=== PATIENT | male | born 1975 | race Caucasian/White ===

== ENCOUNTER 2021-03-30 04:44 | Emergency (ER) | payer OTHER ==
[2021-03-30 06:05] LABS: #Basophils 0.1 10x3/uL (0.0-0.2); #Eosinphils 0.4 10x3/uL (0.0-0.5); #Monocytes 0.9 10x3/uL (0.0-1.1); %Eosinophils 6.2 % (0.0-6.0); %Lymphocytes 7.1 % (18.0-47.0); %Monocytes 12.6 % (0.0-10.0); %Neutrophils 72.7 % (40.0-75.0); Hemoglobin 9.9 g/dL (13.5-17.5); Mean Corpuscular Hemoglobin 24.6 pg (27.0-33.0); Mean Corpuscular Volume 79.2 fl (81.2-95.1); Platelet Count 264 10x3/uL (150-450); RBC Distribution Width 16.7 % (11.5-14.5); Red Blood Cell (RBC) Count 4.03 10x6/uL (4.32-5.72); White Blood Cell (WBC) Count 6.9 10x3/uL (3.5-10.5)
[2021-03-30] MEDS ORDERED: Albumin 25% 25 GM/100 ML BOT IVPB SCH (06:15)
[2021-03-30 06:16] LABS: INR-International Normal Ratio 1.1; Prothrombin Time 11.6 sec (9.5-12.1)
[2021-03-30 06:18] LABS: ALT (SGPT) 11 U/L (8-55); AST (SGOT) 23 U/L (5-34); Albumin 2.2 g/dL (3.5-5.0); Alkaline Phosphatase 89 U/L (40-110); Anion Gap 11 mmol/L (10-20); BUN (Urea Nitrogen) 12 mg/dL (8.9-20.6); Bilirubin, Total 0.5 mg/dL (0.2-1.2); Calc. Creatinine Clearance 0 mL/min (70-130); Calcium 7.4 mg/dL (7.8-10.44); Carbon Dioxide 21 mmol/L (22-29); Chloride 108 mmol/L (98-107); Globulin 2.7 g/dL (2.4-3.5); Glucose 118 mg/dL (70-105); Protein, Total 4.9 g/dL (6.0-8.3); Sodium 136 mmol/L (136-145)
== END 2021-03-30 08:30 | disposition home or self-care (01) ==
LOC: CSHERS 04:44
DX: K76.7 Hepatorenal syndrome (principal); R18.8 Other ascites; E66.9 Obesity, unspecified; Z79.899 Other long term (current) drug therapy
CPT/HCPCS: 36415; 80053; 85025; 85610; 96365; 96366; P9047

== ENCOUNTER 2021-07-13 14:15 | Emergency (ER) | payer OTHER ==
[2021-07-13 15:04] LABS: #Basophils 0.1 10x3/uL (0.0-0.2); #Eosinphils 0.2 10x3/uL (0.0-0.5); #Monocytes 0.7 10x3/uL (0.0-1.1); #Neutrophils 2.4 10x3/uL (1.5-8.4); %Basophils 1.3 % (0.0-2.0); %Lymphocytes 12.1 % (18.0-47.0); %Monocytes 17.8 % (0.0-10.0); %Neutrophils 62.5 % (40.0-75.0); Hemoglobin 8.8 g/dL (13.5-17.5); Mean Corpuscular HGB CONC 31.5 g/dL (32.0-36.0); Mean Corpuscular Hemoglobin 24.3 pg (27.0-33.0); Mean Corpuscular Volume 77.1 fl (81.2-95.1); Mean Platelet Volume 8.7 fl (7.4-10.4); Platelet Count 251 10x3/uL (150-450); RBC Distribution Width 17.6 % (11.5-14.5); Red Blood Cell (RBC) Count 3.62 10x6/uL (4.32-5.72); White Blood Cell (WBC) Count 3.8 10x3/uL (3.5-10.5)
[2021-07-13 15:06] LABS: ALT (SGPT) 11 U/L (8-55); AST (SGOT) 28 U/L (5-34); Albumin 2.6 g/dL (3.5-5.0); Alkaline Phosphatase 76 U/L (40-110); Anion Gap 12 mmol/L (10-20); BUN (Urea Nitrogen) 13 mg/dL (8.9-20.6); Bilirubin, Total 0.3 mg/dL (0.2-1.2); Calc. Creatinine Clearance 0 mL/min (70-130); Calcium 8.1 mg/dL (7.8-10.44); Carbon Dioxide 20 mmol/L (22-29); Chloride 108 mmol/L (98-107); Globulin 2.5 g/dL (2.4-3.5); Glucose 133 mg/dL (70-105); Potassium 4.1 mmol/L (3.5-5.1); Protein, Total 5.1 g/dL (6.0-8.3); Sodium 136 mmol/L (136-145)
[2021-07-13] MEDS ORDERED: Lidocaine 1% PF 5 ML VIAL ONE ×2 (15:17→15:21)
[2021-07-13] MEDS ORDERED: Albumin 25% 200 ML ONE (15:42)
[2021-07-13 17:01] LABS: Anisocytosis SLIGHT = 6-15 cells (100X) (0-5/hpf)
[2021-07-13 17:02] LABS: Hypochromia SLIGHT = 6-15 cells (100X) (0-5/hpf); Platelet Morphology Comment Appears Adequate; Polychromasia SLIGHT = 2-3 cells (100X) (0-2/hpf)
[2021-07-13 18:38] LABS: Body Fluid Source Paracentesis Fluid
[2021-07-13 18:39] LABS: BF Color Yellow; Clarity Clear (Clear); Tube # EDTA
[2021-07-13 19:05] LABS: BF Segmented Neutrophils 6 %; Cell Count Non Hematic 38 %; Lymphocytes 56 %
== END 2021-07-13 18:57 | disposition home or self-care (01) ==
LOC: CSHERS 14:15
DX: K72.90 Hepatic failure, unspecified without coma (principal); R18.8 Other ascites
CPT/HCPCS: 49083; 80053; 82140; 85025; 87070; 87205; 89051; 96374; P9047

== ENCOUNTER 2021-07-16 13:13 | Emergency (ER) | payer OTHER ==
[2021-07-16 14:42] LABS: #Basophils 0.1 10x3/uL (0.0-0.2); #Eosinphils 0.2 10x3/uL (0.0-0.5); #Monocytes 0.6 10x3/uL (0.0-1.1); #Neutrophils 4.1 10x3/uL (1.5-8.4); %Basophils 1.1 % (0.0-2.0); %Lymphocytes 8.3 % (18.0-47.0); %Monocytes 11.3 % (0.0-10.0); %Neutrophils 74.9 % (40.0-75.0); Hemoglobin 9.6 g/dL (13.5-17.5); Mean Corpuscular HGB CONC 32.2 g/dL (32.0-36.0); Mean Corpuscular Hemoglobin 24.2 pg (27.0-33.0); Mean Corpuscular Volume 75.3 fl (81.2-95.1); Mean Platelet Volume 8.7 fl (7.4-10.4); Platelet Count 256 10x3/uL (150-450); RBC Distribution Width 17.7 % (11.5-14.5); Red Blood Cell (RBC) Count 3.96 10x6/uL (4.32-5.72); White Blood Cell (WBC) Count 5.5 10x3/uL (3.5-10.5)
[2021-07-16 14:57] LABS: ALT (SGPT) 18 U/L (8-55); AST (SGOT) 29 U/L (5-34); Albumin 2.6 g/dL (3.5-5.0); Alkaline Phosphatase 73 U/L (40-110); Anion Gap 12 mmol/L (10-20); BUN (Urea Nitrogen) 12 mg/dL (8.9-20.6); Bilirubin, Total 0.3 mg/dL (0.2-1.2); CK (CPK) 76 U/L (30-200); Calc. Creatinine Clearance 0 mL/min (70-130); Calcium 7.7 mg/dL (7.8-10.44); Carbon Dioxide 19 mmol/L (22-29); Chloride 111 mmol/L (98-107); Glucose 103 mg/dL (70-105); Lipase 44 U/L (8-78); Protein, Total 4.6 g/dL (6.0-8.3); Sodium 138 mmol/L (136-145)
[2021-07-16 15:03] LABS: PTT 24.5 sec (22.0-33.0)
== END 2021-07-16 15:06 | disposition left against medical advice (07) ==
LOC: CSHERS 13:13
DX: R18.8 Other ascites (principal)
CPT/HCPCS: 36415; 80053; 82550; 83605; 83690; 85025; 85610; 85730; 99284

== ENCOUNTER 2021-09-18 22:56 | Inpatient (IN) | payer OTHER ==
[2021-09-18] MEDS ORDERED: Lidocaine 1% (PF) 30 ML VIAL ONE (23:24)
[2021-09-18] MEDS ORDERED: Piperacillin/Tazobactam 4.5 GM VIAL ONE (23:29)
[2021-09-18 23:41] LABS: #Basophils 0.1 10x3/uL (0.0-0.2); #Eosinphils 0.2 10x3/uL (0.0-0.5); #Monocytes 1.1 10x3/uL (0.0-1.1); #Neutrophils 6.5 10x3/uL (1.5-8.4); %Basophils 1.1 % (0.0-2.0); %Eosinophils 1.9 % (0.0-6.0); %Monocytes 12.8 % (0.0-10.0); %Neutrophils 77.8 % (40.0-75.0); Hemoglobin 9.8 g/dL (13.5-17.5); Mean Corpuscular HGB CONC 31.8 g/dL (32.0-36.0); Mean Corpuscular Hemoglobin 26.6 pg (27.0-33.0); Mean Corpuscular Volume 83.7 fl (81.2-95.1); Mean Platelet Volume 8.8 fl (7.4-10.4); Platelet Count 243 10x3/uL (150-450); RBC Distribution Width 19.2 % (11.5-14.5); Red Blood Cell (RBC) Count 3.68 10x6/uL (4.32-5.72); White Blood Cell (WBC) Count 8.4 10x3/uL (3.5-10.5)
[2021-09-18 23:49] LABS: ALT (SGPT) 23 U/L (8-55); AST (SGOT) 43 U/L (5-34); Albumin 2.7 g/dL (3.5-5.0); Alkaline Phosphatase 90 U/L (40-110); Anion Gap 12 mmol/L (10-20); BUN (Urea Nitrogen) 12 mg/dL (8.9-20.6); Bilirubin, Total 0.3 mg/dL (0.2-1.2); Calc. Creatinine Clearance 0 mL/min (70-130); Calcium 8.2 mg/dL (7.8-10.44); Carbon Dioxide 21 mmol/L (22-29); Chloride 112 mmol/L (98-107); Estimated GFR 69; Globulin 2.5 g/dL (2.4-3.5); Glucose 108 mg/dL (70-105); Protein, Total 5.2 g/dL (6.0-8.3); Sodium 141 mmol/L (136-145)
[2021-09-19 00:31] LABS: SARS-CoV-2 NAA Rapid Test Not Detected (NotDetected)
[2021-09-19] MEDS ORDERED: Furosemide 40 MG/4 ML VIAL ONE (00:44)
[2021-09-19] MEDS ORDERED: Lorazepam 2 MG/ML VIAL ONE (02:41)
[2021-09-19] MEDS ORDERED: Communication Order-Pharmacy FS PRN (03:24)
[2021-09-19] MEDS ORDERED: Lorazepam 2 MG/ML VIAL SLOW IVP PRN (03:34)
[2021-09-19] MEDS ORDERED: Ondansetron PF 4 MG/2 ML Vial IVP PRN (03:40)
[2021-09-19 03:48] VITALS: BMI 57.2
[2021-09-19] MEDS ORDERED: Pharmacy to Dose ABX/VANCOMYCIN IVPB PRN (04:22)
[2021-09-19] MEDS ORDERED: Vancomycin HCl 1 GM in Sodium Chloride 0.9% 250 ML 250 ML IVPB SCH (05:00)
[2021-09-19] MEDS ORDERED: Thiamine HCl 200 MG/2 ML VIAL SLOW IVP SCH (05:00)
[2021-09-19] MEDS ORDERED: Lorazepam 1 MG TAB PO SCH (05:00)
[2021-09-19] MEDS: Piperacillin/Tazobactam 3.375 GM in Sodium Chloride 0.9% 100 ML IVPB SCH ×2 (05:07→13:08)
[2021-09-19] MEDS ORDERED: Piperacillin/Tazobactam 4.5 GM in Sodium Chloride 0.9% 100 ML IVPB SCH (06:00)
[2021-09-19] MEDS ORDERED: Bumetanide 1 MG TAB PO SCH (07:30)
[2021-09-19 07:41] LABS: Anion Gap 12 mmol/L (10-20); BUN (Urea Nitrogen) 13 mg/dL (8.9-20.6); Calc. Creatinine Clearance 191 mL/min (70-130); Calcium 7.9 mg/dL (7.8-10.44); Carbon Dioxide 23 mmol/L (22-29); Chloride 110 mmol/L (98-107); Estimated GFR 77; Glucose 103 mg/dL (70-105); Magnesium 1.5 mg/dL (1.6-2.6); Potassium 3.6 mmol/L (3.5-5.1); Sodium 141 mmol/L (136-145)
[2021-09-19] MEDS ORDERED: Spironolactone 25 MG TAB PO SCH (08:00)
[2021-09-19] MEDS ORDERED: Folic Acid 1 MG TAB PO SCH (09:00)
[2021-09-19] MEDS ORDERED: Enoxaparin Sodium 40 MG/0.4 ML SYRINGE SC SCH (09:00)
[2021-09-19] MEDS ORDERED: Rifaximin 550 MG TAB PO SCH (09:00)
[2021-09-19] MEDS ORDERED: Pantoprazole 40 MG VIAL IVP SCH (09:00)
[2021-09-19] MEDS ORDERED: Multivitamin W/ Minerals 1 TAB PO SCH (09:00)
[2021-09-19] MEDS ORDERED: HYDROcodone/Acetaminophen 5/325 mg Tablet PO PRN (11:40)
[2021-09-19] MEDS ORDERED: Morphine 4 MG/ML VIAL SLOW IVP PRN (11:40)
[2021-09-19] MEDS ORDERED: HYDROcodone/Acetaminophen 5/325 mg Tablet PO SCH (11:45)
[2021-09-19 12:04] VITALS: BP 118/58; TEMP 97.5
[2021-09-19] MEDS: Magnesium 2 GM/50 ML(in water) 2 GM in Premix Bag 1 BAG IVPB SCH ×2 (12:16→12:20)
[2021-09-19] MEDS ORDERED: Sodium Bicarbonate 2.5 MEQ/5 ML VIAL ONE (12:28)
[2021-09-19] MEDS ORDERED: Albumin 25% 100 ML ONE (12:28)
[2021-09-19] MEDS ORDERED: Albumin 25% 0 ML ONE (12:28)
[2021-09-19] MEDS ORDERED: Lidocaine 1% PF 5 ML VIAL ONE (12:28)
[2021-09-19] MEDS ORDERED: Piperacillin/Tazobactam 3.375 GM VIAL ONE (13:10)
[2021-09-19] MEDS ORDERED: Bumetanide 1 MG/4 ML VIAL IVP SCH (14:00)
[2021-09-19 14:32] LABS: BF Color Yellow; Body Fluid Source Ascites Body Fluid; Clarity Hazy (Clear); Tube # EDTA
[2021-09-19 15:52] LABS: Cell Count Non Hematic 26 %
[2021-09-19 15:54] LABS: BF Segmented Neutrophils 21 %; Lymphocytes 53 %
[2021-09-19] MEDS ORDERED: VANCOMYCIN IVPB SCH (17:00)
[2021-09-19] MEDS ORDERED: rOPINIRole HCl 1 MG TAB PO SCH (21:00)
[2021-09-20] MEDS ORDERED: Spironolactone 25 MG TAB PO SCH (08:00)
== END 2021-09-19 17:01 | disposition left against medical advice (07) | DRG 432 ==
LOC: CSHERS 22:56 → CSHTELE 09-19 03:42
PROVIDERS: ADMIT Family Medicine; ATTEND Family Medicine
PROC: 0W9G3ZZ Drainage of Peritoneal Cavity, Percutaneous Approach (ICD-10-PCS; principal; 2021-09-19)
DX: K70.31 Alcoholic cirrhosis of liver with ascites (principal); K65.2 Spontaneous bacterial peritonitis; Z20.822 Contact with and (suspected) exposure to COVID-19; F10.20 Alcohol dependence, uncomplicated; J98.4 Other disorders of lung; E66.01 Morbid (severe) obesity due to excess calories; E03.9 Hypothyroidism, unspecified; B19.20 Unspecified viral hepatitis C without hepatic coma; Z76.82 Awaiting organ transplant status; Z90.49 Acquired absence of other specified parts of digestive tract
CPT/HCPCS: 36415; 49083; 71045; 76705; 80048; 80053; 82042; 82140; 82945; 83605; 83735; 83880; 84443; 84484; 85025; 87040; 87070; 87205; 89051; 93005; C9113; J1650; J1940; J2001; J2060; J2543; J3370; J3411; J3475; J3490; J7050; P9047; U0002

== ENCOUNTER 2021-11-14 11:06 | Emergency (ER) | payer OTHER ==
[2021-11-14 11:39] LABS: Hemoglobin 10.9 g/dL (13.5-17.5); Mean Corpuscular HGB CONC 32.2 g/dL (32.0-36.0); Mean Corpuscular Hemoglobin 26.1 pg (27.0-33.0); Mean Corpuscular Volume 81.1 fl (81.2-95.1); Platelet Count 267 10x3/uL (150-450); RBC Distribution Width 15.9 % (11.5-14.5); Red Blood Cell (RBC) Count 4.17 10x6/uL (4.32-5.72); White Blood Cell (WBC) Count 5.4 10x3/uL (3.5-10.5)
[2021-11-14 11:47] LABS: PTT 22.9 sec (22.0-33.0); Prothrombin Time 10.9 sec (9.5-12.1)
[2021-11-14 11:49] LABS: ALT (SGPT) 21 U/L (8-55); AST (SGOT) 40 U/L (5-34); Alkaline Phosphatase 78 U/L (40-110); Anion Gap 11 mmol/L (10-20); BUN (Urea Nitrogen) 16 mg/dL (8.9-20.6); Bilirubin, Total 0.3 mg/dL (0.2-1.2); Calc. Creatinine Clearance 0 mL/min (70-130); Calcium 8.8 mg/dL (7.8-10.44); Carbon Dioxide 23 mmol/L (22-29); Chloride 108 mmol/L (98-107); Estimated GFR 73; Globulin 2.7 g/dL (2.4-3.5); Glucose 94 mg/dL (70-105); Lipase 50 U/L (8-78); Potassium 5.2 mmol/L (3.5-5.1); Protein, Total 5.7 g/dL (6.0-8.3); Sodium 137 mmol/L (136-145)
[2021-11-14 12:12] LABS: Eosinophils 5 % (0-10); Lymphocytes 6 % (21-51); Monocytes 11 % (0-10); Reactive Lymphocytes 2 % (0-10)
[2021-11-14 12:13] LABS: MDiff Complete? YES; Neutrophil 74 % (42-75)
[2021-11-14 12:16] LABS: Large Platelets SLIGHT; Microcytosis SLIGHT = 6-15 cells (100X) (0-5/hpf)
[2021-11-14 12:17] LABS: Platelet Morphology Comment Appears Adequate
[2021-11-14] MEDS ORDERED: Morphine 4 MG/ML VIAL ONE (13:53)
== END 2021-11-14 14:05 | disposition home or self-care (01) ==
LOC: CSHERS 11:06
DX: R10.11 Right upper quadrant pain (principal); R18.8 Other ascites
CPT/HCPCS: 36415; 71045; 80053; 83690; 85025; 85610; 85730; 96374; J2270

== ENCOUNTER 2021-12-16 15:34 | Observation (INO) | payer OTHER ==
[2021-12-16 16:07] LABS: #Basophils 0.1 10x3/uL (0.0-0.2); #Eosinphils 0.3 10x3/uL (0.0-0.5); #Monocytes 0.9 10x3/uL (0.0-1.1); #Neutrophils 3.6 10x3/uL (1.5-8.4); %Basophils 1.1 % (0.0-2.0); %Eosinophils 4.9 % (0.0-6.0); %Lymphocytes 11.3 % (18.0-47.0); %Monocytes 16.9 % (0.0-10.0); %Neutrophils 65.3 % (40.0-75.0); Hemoglobin 11.7 g/dL (13.5-17.5); Mean Corpuscular HGB CONC 33.1 g/dL (32.0-36.0); Mean Corpuscular Volume 78.4 fl (81.2-95.1); Mean Platelet Volume 9.2 fl (7.4-10.4); Platelet Count 293 10x3/uL (150-450); RBC Distribution Width 16.5 % (11.5-14.5); White Blood Cell (WBC) Count 5.5 10x3/uL (3.5-10.5)
[2021-12-16 16:26] LABS: ALT (SGPT) 39 U/L (8-55); AST (SGOT) 58 U/L (5-34); Albumin 3.3 g/dL (3.5-5.0); Alkaline Phosphatase 109 U/L (40-110); Anion Gap 14 mmol/L (10-20); BUN (Urea Nitrogen) 16 mg/dL (8.9-20.6); Bilirubin, Total 0.5 mg/dL (0.2-1.2); Calc. Creatinine Clearance 0 mL/min (70-130); Calcium 8.7 mg/dL (7.8-10.44); Carbon Dioxide 23 mmol/L (22-29); Chloride 105 mmol/L (98-107); Estimated GFR 59; Globulin 2.9 g/dL (2.4-3.5); Glucose 119 mg/dL (70-105); Potassium 4.1 mmol/L (3.5-5.1); Protein, Total 6.2 g/dL (6.0-8.3); Sodium 138 mmol/L (136-145)
[2021-12-16 16:43] LABS: Band 1 % (5-11); Eosinophils 6 % (0-10); Lymphocytes 10 % (21-51); Monocytes 12 % (0-10); Reactive Lymphocytes 5 % (0-10)
[2021-12-16 16:44] LABS: Neutrophil 65 % (42-75)
[2021-12-16 16:48] LABS: Anisocytosis SLIGHT = 6-15 cells (100X) (0-5/hpf); MDiff Complete? YES; Microcytosis SLIGHT = 6-15 cells (100X) (0-5/hpf); Platelet Morphology Comment Appears Adequate
[2021-12-16] MEDS ORDERED: HYDROcodone/Acetaminophen 7.5/325 mg Tablet ONE (18:33)
[2021-12-16] MEDS ORDERED: Morphine 4 MG/ML VIAL ONE (18:34)
[2021-12-16 20:46] LABS: PTT 24.9 sec (22.0-33.0)
[2021-12-16 20:48] LABS: Magnesium 1.7 mg/dL (1.6-2.6)
[2021-12-16] MEDS ORDERED: Ondansetron PF 4 MG/2 ML Vial IVP PRN (20:57)
[2021-12-16] MEDS ORDERED: Ondansetron ODT 4 MG TAB PO PRN (20:57)
[2021-12-16] MEDS ORDERED: FLU VACC QS2022-23(6MOS UP)/PF 60 MCG/0.5 ML SYRINGE IM ONE (21:23)
[2021-12-16 22:10] VITALS: BMI 51.5
[2021-12-17] MEDS ORDERED: Aripiprazole 10 MG TAB PO SCH (09:00)
[2021-12-17] MEDS ORDERED: Ciprofloxacin 500 MG TAB PO SCH (09:00)
[2021-12-17] MEDS ORDERED: Multivit, Therapeutic 1 TAB PO SCH (09:00)
[2021-12-17] MEDS ORDERED: Spironolactone 25 MG TAB PO SCH (09:00)
[2021-12-17] MEDS ORDERED: Rifaximin 550 MG TAB PO SCH (09:00)
[2021-12-17] MEDS ORDERED: Folic Acid 1 MG TAB PO SCH (09:00)
[2021-12-17] MEDS ORDERED: Thiamine 100 MG TAB PO SCH (09:00)
[2021-12-17] MEDS: HYDROcodone/Acetaminophen 10/325 mg Tablet PO PRN ×2 (10:08→15:46)
[2021-12-17] MEDS: Bumetanide 1 MG TAB PO SCH ×2 (10:11→15:13)
[2021-12-17] MEDS ORDERED: Sodium Bicarbonate 2.5 MEQ/5 ML VIAL ONE (11:38)
[2021-12-17] MEDS ORDERED: Lidocaine 1% PF 5 ML VIAL ONE ×2 (11:38→12:03)
[2021-12-17] MEDS ORDERED: Albumin 25% 25 GM/100 ML BOT IVPB SCH (14:00)
[2021-12-17 14:17] LABS: Anion Gap 13 mmol/L (10-20); BUN (Urea Nitrogen) 16 mg/dL (8.9-20.6); Calc. Creatinine Clearance 154 mL/min (70-130); Calcium 8.8 mg/dL (7.8-10.44); Carbon Dioxide 26 mmol/L (22-29); Chloride 102 mmol/L (98-107); Estimated GFR 68; Glucose 126 mg/dL (70-105); Potassium 4.3 mmol/L (3.5-5.1); Sodium 137 mmol/L (136-145)
[2021-12-17 16:46] VITALS: BP 111/63; TEMP 98.2
[2021-12-17] MEDS ORDERED: rOPINIRole HCl 1 MG TAB PO SCH (21:00)
== END 2021-12-17 18:00 | disposition home or self-care (01) ==
LOC: CSHERS 15:34 → CSHTELE 20:56
PROVIDERS: ADMIT Family Medicine; ATTEND Nurse Practitioner Acute Care
PROC: 0W9G3ZZ Drainage of Peritoneal Cavity, Percutaneous Approach (ICD-10-PCS; principal; 2021-12-17)
DX: K70.31 Alcoholic cirrhosis of liver with ascites (principal); B19.20 Unspecified viral hepatitis C without hepatic coma; F31.9 Bipolar disorder, unspecified; G25.81 Restless legs syndrome; N17.9 Acute kidney failure, unspecified; Z88.6 Allergy status to analgesic agent; Z90.49 Acquired absence of other specified parts of digestive tract; Z79.891 Long term (current) use of opiate analgesic; Z79.899 Other long term (current) drug therapy
CPT/HCPCS: 36415; 49083; 71045; 76705; 80048; 80053; 83735; 83880; 84484; 85025; 85610; 85730; 93005; 96374; G0378; J2270; P9047; U0003; U0005

== ENCOUNTER 2022-01-02 13:56 | Emergency (ER) | payer OTHER ==
[2022-01-02] MEDS ORDERED: Morphine 4 MG/ML VIAL ONE ×2 (14:22→20:14)
[2022-01-02] MEDS ORDERED: Ondansetron PF 4 MG/2 ML Vial ONE (14:22)
[2022-01-02] MEDS ORDERED: Furosemide 40 MG/4 ML VIAL ONE (14:22)
[2022-01-02] MEDS ORDERED: Lidocaine 1% (PF) 30 ML VIAL ONE (14:47)
[2022-01-02 15:01] LABS: Hemoglobin 11.4 g/dL (13.5-17.5); MDiff Complete? YES; Mean Corpuscular HGB CONC 32.9 g/dL (32.0-36.0); Mean Corpuscular Hemoglobin 25.9 pg (27.0-33.0); Mean Corpuscular Volume 78.5 fl (81.2-95.1); Mean Platelet Volume 9.2 fl (7.4-10.4); Platelet Count 274 10x3/uL (150-450); RBC Distribution Width 16.8 % (11.5-14.5); Red Blood Cell (RBC) Count 4.41 10x6/uL (4.32-5.72); White Blood Cell (WBC) Count 5.5 10x3/uL (3.5-10.5)
[2022-01-02 15:13] LABS: ALT (SGPT) 28 U/L (8-55); AST (SGOT) 45 U/L (5-34); Albumin 3.3 g/dL (3.5-5.0); Alkaline Phosphatase 91 U/L (40-110); Anion Gap 12 mmol/L (10-20); BUN (Urea Nitrogen) 22 mg/dL (8.9-20.6); Bilirubin, Total 0.5 mg/dL (0.2-1.2); Calc. Creatinine Clearance 0 mL/min (70-130); Calcium 8.4 mg/dL (7.8-10.44); Carbon Dioxide 24 mmol/L (22-29); Chloride 106 mmol/L (98-107); Estimated GFR 62; Glucose 105 mg/dL (70-105); Potassium 4.5 mmol/L (3.5-5.1); Protein, Total 6.3 g/dL (6.0-8.3); Sodium 137 mmol/L (136-145)
[2022-01-02 15:54] LABS: Bilirubin Neg (Negative); Blood, Urine Negative (Negative); Clarity Clear (Clear); Glucose, Urine (Dipstick) Normal (Negative); Ketone, Urine Negative (Negative); Leukocyte Negative (Negative); Nitrite Negative (Negative); Protein, Urine (Dipstick) Negative (Neg-Trace); Urobilinogen Normal mg/dL (Less than 2)
[2022-01-02 16:00] LABS: Band 2 % (5-11); Eosinophils 6 % (0-10); Lymphocytes 17 % (21-51); Monocytes 8 % (0-10); Neutrophil 66 % (42-75)
[2022-01-02 16:07] LABS: Platelet Morphology Comment Appears Adequate; RBC Morphology Normal
[2022-01-02 16:25] LABS: SARS-CoV-2 NAA Rapid Test Not Detected (NotDetected)
[2022-01-02] MEDS ORDERED: Azithromycin 500 MG VIAL ONE (16:57)
[2022-01-02] MEDS ORDERED: cefTRIAXone\\ROCEPHIN 2 GM VIAL ONE (16:57)
[2022-01-03] MEDS ORDERED: Enoxaparin Sodium 80 MG/0.8 ML SYRINGE ONE (17:12)
== END 2022-01-02 20:21 | disposition short-term general hospital (02) ==
LOC: CSHERS 13:56
DX: R18.8 Other ascites (principal); J18.9 Pneumonia, unspecified organism; E66.9 Obesity, unspecified; Z20.822 Contact with and (suspected) exposure to COVID-19
CPT/HCPCS: 36415; 71045; 80053; 81003; 83880; 85025; 96365; 96366; 96368; 96375; 96376; J0456; J0696; J1940; J2001; J2270; J2405

== ENCOUNTER → 2022-02-04 | Emergency (ER) | payer OTHER ==
[~2022-02-04] MED LIST: Ketorolac Tromethamine 30 MG/ML VIAL ONE
[2022-02-04 22:54] LABS: Hemoglobin 11.3 g/dL (13.5-17.5); Mean Corpuscular Hemoglobin 26.5 pg (27.0-33.0); Mean Corpuscular Volume 80.1 fl (81.2-95.1); Mean Platelet Volume 9.5 fl (7.4-10.4); Platelet Count 234 10x3/uL (150-450); Red Blood Cell (RBC) Count 4.27 10x6/uL (4.32-5.72); White Blood Cell (WBC) Count 7.5 10x3/uL (3.5-10.5)
[2022-02-04 23:05] LABS: ALT (SGPT) 23 U/L (8-55); AST (SGOT) 26 U/L (5-34); Alkaline Phosphatase 78 U/L (40-110); Anion Gap 12 mmol/L (10-20); BUN (Urea Nitrogen) 12 mg/dL (8.9-20.6); Bilirubin, Total 0.3 mg/dL (0.2-1.2); Calc. Creatinine Clearance 0 mL/min (70-130); Calcium 8.4 mg/dL (7.8-10.44); Carbon Dioxide 24 mmol/L (22-29); Chloride 105 mmol/L (98-107); Estimated GFR 69; Globulin 2.6 g/dL (2.4-3.5); Glucose 157 mg/dL (70-105); Lipase 57 U/L (8-78); Magnesium 1.3 mg/dL (1.6-2.6); Potassium 3.7 mmol/L (3.5-5.1); Protein, Total 5.6 g/dL (6.0-8.3); Sodium 137 mmol/L (136-145)
[2022-02-04 23:16] LABS: MDiff Complete? YES
[2022-02-04 23:33] LABS: Eosinophils 5 % (0-10); Lymphocytes 8 % (21-51); Monocytes 13 % (0-10); Neutrophil 72 % (42-75)
== END ==
LOC: CSHERS 21:58
DX: R10.9 Unspecified abdominal pain (principal); G89.29 Other chronic pain; E66.9 Obesity, unspecified
CPT/HCPCS: 36415; 74176; 80053; 83690; 83735; 85025; 96374; J1885

== ENCOUNTER 2022-02-19 22:40 | Inpatient (IN) | payer OTHER ==
[2022-02-19] MEDS ORDERED: Ondansetron PF 4 MG/2 ML Vial IVP PRN (22:55)
[2022-02-19] MEDS ORDERED: Zolpidem Tartrate 5 MG TAB PO PRN (22:59)
[2022-02-19] MEDS ORDERED: Furosemide 40 MG/4 ML VIAL SLOW IVP SCH (23:00)
[2022-02-19 23:03] VITALS: BMI 55.6
[2022-02-19] MEDS ORDERED: Morphine 2 MG/ML VIAL SLOW IVP PRN (23:11)
[2022-02-19 23:27] LABS: #Basophils 0.1 10x3/uL (0.0-0.2); #Eosinphils 0.3 10x3/uL (0.0-0.5); #Monocytes 0.8 10x3/uL (0.0-1.1); #Neutrophils 4.7 10x3/uL (1.5-8.4); %Eosinophils 4.6 % (0.0-6.0); %Lymphocytes 9.3 % (18.0-47.0); %Monocytes 12.4 % (0.0-10.0); %Neutrophils 71.2 % (40.0-75.0); Hemoglobin 12.2 g/dL (13.5-17.5); Mean Corpuscular HGB CONC 31.8 g/dL (32.0-36.0); Mean Corpuscular Hemoglobin 25.6 pg (27.0-33.0); Mean Corpuscular Volume 80.7 fl (81.2-95.1); Mean Platelet Volume 8.8 fl (7.4-10.4); Platelet Count 305 10x3/uL (150-450); RBC Distribution Width 17.1 % (11.5-14.5); Red Blood Cell (RBC) Count 4.76 10x6/uL (4.32-5.72); White Blood Cell (WBC) Count 6.6 10x3/uL (3.5-10.5)
[2022-02-19] MEDS: Morphine 4 MG/ML VIAL SLOW IVP PRN (23:40)
[2022-02-19] MEDS: Dextrose 5 %-0.45 % NaCl 1,000 ML IV SCH (23:41)
[2022-02-19] MEDS: cefTRIAXone\\ROCEPHIN 2 GM in Sodium Chloride 0.9% 100 ML IVPB SCH (23:41)
[2022-02-20] MEDS: Octreotide Acetate 1,250 MCG in Sodium Chloride 0.9% 250 ML 250 ML IVPB SCH (00:33)
[2022-02-20] MEDS: Albumin 25% 25 GM/100 ML BOT IVPB SCH ×2 (00:33→05:22)
[2022-02-20] MEDS ORDERED: FLU VACC QS2022-23(6MOS UP)/PF 60 MCG/0.5 ML SYRINGE IM ONE (03:45)
[2022-02-20] MEDS: Morphine 4 MG/ML VIAL SLOW IVP PRN ×5 (04:11→20:42)
[2022-02-20 05:02] LABS: Hemoglobin 11.4 g/dL (13.5-17.5); Mean Corpuscular HGB CONC 31.8 g/dL (32.0-36.0); Mean Corpuscular Hemoglobin 25.8 pg (27.0-33.0); Mean Corpuscular Volume 81.2 fl (81.2-95.1); Mean Platelet Volume 9.1 fl (7.4-10.4); Platelet Count 284 10x3/uL (150-450); RBC Distribution Width 16.8 % (11.5-14.5); Red Blood Cell (RBC) Count 4.42 10x6/uL (4.32-5.72); White Blood Cell (WBC) Count 5.3 10x3/uL (3.5-10.5)
[2022-02-20 05:06] LABS: ALT (SGPT) 13 U/L (8-55); AST (SGOT) 27 U/L (5-34); Albumin 3.2 g/dL (3.5-5.0); Alkaline Phosphatase 76 U/L (40-110); Anion Gap 15 mmol/L (10-20); BUN (Urea Nitrogen) 14 mg/dL (8.9-20.6); Bilirubin, Total 0.5 mg/dL (0.2-1.2); Calc. Creatinine Clearance 170 mL/min (70-130); Calcium 8.3 mg/dL (7.8-10.44); Carbon Dioxide 22 mmol/L (22-29); Chloride 107 mmol/L (98-107); Estimated GFR 69; Globulin 2.5 g/dL (2.4-3.5); Glucose 133 mg/dL (70-105); Protein, Total 5.7 g/dL (6.0-8.3); Sodium 140 mmol/L (136-145)
[2022-02-20 06:07] LABS: MDiff Complete? YES
[2022-02-20 06:15] LABS: Eosinophils 4 % (0-10); Lymphocytes 12 % (21-51); Monocytes 16 % (0-10); Neutrophil 67 % (42-75)
[2022-02-20 06:16] LABS: Platelet Morphology Comment Appears Adequate; RBC Morphology Normal
[2022-02-20] MEDS: Pantoprazole 40 MG VIAL IVP SCH ×2 (08:02→20:42)
[2022-02-20] MEDS: Spironolactone 25 MG TAB PO SCH (08:03)
[2022-02-20] MEDS: Folic Acid 1 MG TAB PO SCH (08:03)
[2022-02-20] MEDS: Bumetanide 1 MG TAB PO SCH ×2 (08:03→16:56)
[2022-02-20] MEDS: Aripiprazole 10 MG TAB PO SCH (08:03)
[2022-02-20] MEDS: Thiamine 100 MG TAB PO SCH (08:04)
[2022-02-20] MEDS: Multivit, Therapeutic 1 TAB PO SCH (08:04)
[2022-02-20] MEDS: Gabapentin 300 MG CAP PO SCH ×2 (08:04→20:44)
[2022-02-20] MEDS: Rifaximin 550 MG TAB PO SCH ×2 (08:05→20:43)
[2022-02-20 12:38] LABS: Hemoglobin 11.1 g/dL (13.5-17.5); Mean Corpuscular HGB CONC 31.1 g/dL (32.0-36.0); Mean Corpuscular Hemoglobin 25.8 pg (27.0-33.0); Mean Platelet Volume 9.3 fl (7.4-10.4); Platelet Count 294 10x3/uL (150-450); RBC Distribution Width 16.9 % (11.5-14.5); White Blood Cell (WBC) Count 6.8 10x3/uL (3.5-10.5)
[2022-02-20 12:59] LABS: Band 4 % (5-11); Eosinophils 7 % (0-10); Monocytes 17 % (0-10)
[2022-02-20 13:03] LABS: Lymphocytes 5 % (21-51); Reactive Lymphocytes 4 % (0-10)
[2022-02-20 13:05] LABS: Anisocytosis SLIGHT = 6-15 cells (100X) (0-5/hpf); Microcytosis SLIGHT = 6-15 cells (100X) (0-5/hpf); Neutrophil 60 % (42-75); Ovalocytes SLIGHT = 2-5 cells (100X) (0-1/hpf); Platelet Morphology Comment Appears Adequate; Toxic Granulation SLIGHT
[2022-02-20 13:06] LABS: Platelet Clumps SLIGHT
[2022-02-20 13:07] LABS: MDiff Complete? YES
[2022-02-20] MEDS: Dextrose 5 %-0.45 % NaCl 1,000 ML IV SCH (19:04)
[2022-02-20] MEDS: rOPINIRole HCl 0.25 MG TAB PO SCH (20:43)
[2022-02-20] MEDS: cefTRIAXone\\ROCEPHIN 2 GM in Sodium Chloride 0.9% 100 ML IVPB SCH (23:12)
[2022-02-21] MEDS: Morphine 4 MG/ML VIAL SLOW IVP PRN ×6 (01:18→21:09)
[2022-02-21] MEDS: Octreotide Acetate 1,250 MCG in Sodium Chloride 0.9% 250 ML 250 ML IVPB SCH (01:56)
[2022-02-21 05:16] LABS: Hemoglobin 10.6 g/dL (13.5-17.5); Mean Corpuscular HGB CONC 31.3 g/dL (32.0-36.0); Mean Corpuscular Hemoglobin 25.7 pg (27.0-33.0); Mean Corpuscular Volume 82.1 fl (81.2-95.1); Mean Platelet Volume 8.9 fl (7.4-10.4); Platelet Count 277 10x3/uL (150-450); RBC Distribution Width 16.4 % (11.5-14.5); Red Blood Cell (RBC) Count 4.13 10x6/uL (4.32-5.72); White Blood Cell (WBC) Count 6.8 10x3/uL (3.5-10.5)
[2022-02-21 05:21] LABS: Anion Gap 14 mmol/L (10-20); BUN (Urea Nitrogen) 15 mg/dL (8.9-20.6); Calc. Creatinine Clearance 152 mL/min (70-130); Calcium 7.3 mg/dL (7.8-10.44); Carbon Dioxide 27 mmol/L (22-29); Chloride 102 mmol/L (98-107); Estimated GFR 60; Glucose 139 mg/dL (70-105); Potassium 3.7 mmol/L (3.5-5.1); Sodium 139 mmol/L (136-145)
[2022-02-21 05:27] LABS: MDiff Complete? YES
[2022-02-21 06:21] LABS: Eosinophils 1 % (0-10); Lymphocytes 4 % (21-51); Monocytes 13 % (0-10); Neutrophil 82 % (42-75)
[2022-02-21 06:23] LABS: Platelet Morphology Comment Appears Adequate; RBC Morphology Normal
[2022-02-21] MEDS: Pantoprazole 40 MG VIAL IVP SCH ×2 (08:57→21:09)
[2022-02-21] MEDS: Spironolactone 25 MG TAB PO SCH (08:58)
[2022-02-21] MEDS: Thiamine 100 MG TAB PO SCH (08:58)
[2022-02-21] MEDS: Folic Acid 1 MG TAB PO SCH (08:58)
[2022-02-21] MEDS: Aripiprazole 10 MG TAB PO SCH (08:59)
[2022-02-21] MEDS: Gabapentin 300 MG CAP PO SCH ×2 (08:59→21:09)
[2022-02-21] MEDS: Multivit, Therapeutic 1 TAB PO SCH (08:59)
[2022-02-21] MEDS: Rifaximin 550 MG TAB PO SCH ×2 (09:00→21:10)
[2022-02-21] MEDS: Bumetanide 1 MG TAB PO SCH ×2 (09:00→17:48)
[2022-02-21] MEDS: Dextrose 5 %-0.45 % NaCl 1,000 ML IV SCH (15:51)
[2022-02-21] MEDS ORDERED: PROPOFOL 40 ML ONE (17:26)
[2022-02-21] MEDS ORDERED: Ondansetron PF 4 MG/2 ML Vial ONE (17:27)
[2022-02-21] MEDS ORDERED: Lidocaine 1% PF 5 ML VIAL ONE (17:27)
[2022-02-21] MEDS: rOPINIRole HCl 0.25 MG TAB PO SCH (21:10)
[2022-02-22] MEDS: cefTRIAXone\\ROCEPHIN 2 GM in Sodium Chloride 0.9% 100 ML IVPB SCH (00:39)
[2022-02-22] MEDS ORDERED: Furosemide 40 MG/4 ML VIAL SLOW IVP SCH (01:15)
[2022-02-22 05:54] LABS: Hemoglobin 10.6 g/dL (13.5-17.5); Mean Corpuscular HGB CONC 31.4 g/dL (32.0-36.0); Mean Corpuscular Hemoglobin 26.1 pg (27.0-33.0); Mean Corpuscular Volume 83.3 fl (81.2-95.1); Mean Platelet Volume 9.3 fl (7.4-10.4); Platelet Count 265 10x3/uL (150-450); RBC Distribution Width 15.9 % (11.5-14.5); Red Blood Cell (RBC) Count 4.06 10x6/uL (4.32-5.72); White Blood Cell (WBC) Count 7.1 10x3/uL (3.5-10.5)
[2022-02-22 06:09] LABS: Anion Gap 12 mmol/L (10-20); BUN (Urea Nitrogen) 11 mg/dL (8.9-20.6); Calc. Creatinine Clearance 164 mL/min (70-130); Calcium 7.1 mg/dL (7.8-10.44); Carbon Dioxide 34 mmol/L (22-29); Chloride 95 mmol/L (98-107); Estimated GFR 66; Glucose 161 mg/dL (70-105); Potassium 3.8 mmol/L (3.5-5.1); Sodium 137 mmol/L (136-145)
[2022-02-22 06:12] LABS: MDiff Complete? YES
[2022-02-22 06:15] LABS: Band 5 % (5-11); Eosinophils 1 % (0-10); Lymphocytes 3 % (21-51); Monocytes 20 % (0-10); Neutrophil 69 % (42-75); Reactive Lymphocytes 1 % (0-10)
[2022-02-22 06:18] LABS: Platelet Morphology Comment Appears Adequate; RBC Morphology Normal
[2022-02-22] MEDS: Bumetanide 1 MG TAB PO SCH ×2 (08:02→17:03)
[2022-02-22] MEDS: Morphine 4 MG/ML VIAL SLOW IVP PRN (08:54)
[2022-02-22] MEDS: Spironolactone 25 MG TAB PO SCH (08:55)
[2022-02-22] MEDS: Pantoprazole 40 MG VIAL IVP SCH (08:55)
[2022-02-22] MEDS: Gabapentin 300 MG CAP PO SCH ×2 (08:56→19:45)
[2022-02-22] MEDS: Folic Acid 1 MG TAB PO SCH (08:56)
[2022-02-22] MEDS: Aripiprazole 10 MG TAB PO SCH (08:57)
[2022-02-22] MEDS: Multivit, Therapeutic 1 TAB PO SCH (08:57)
[2022-02-22] MEDS: Thiamine 100 MG TAB PO SCH (08:57)
[2022-02-22] MEDS: Rifaximin 550 MG TAB PO SCH ×2 (08:57→19:58)
[2022-02-22 10:32] LABS: Actual Bicarbonate (HCO3v) 34 mEq/L (22-28); Base Excess 6.9 mEq/L (-2.0 to +3.0); Calcium, Ionized (venous) 0.87 mmol/L (1.16-1.32); Chloride (VBG) 97 mmol/L (98-106); Hemoglobin (Hb) 11.6 g/dL (13.2-17.3); Potassium (VBG) 3.83 mmol/L (3.70-5.30); Puncture Site Other Site; RapidComm Collect By CBN; Sodium 134.7 mmol/L (133-146); pH (venous) 7.38 (7.32-7.43)
[2022-02-22] MEDS ORDERED: Acetaminophen 500 MG TAB PO PRN (14:11)
[2022-02-22] MEDS ORDERED: HYDROcodone/Acetaminophen 5/325 mg Tablet PO PRN (14:11)
[2022-02-22] MEDS ORDERED: Dicyclomine 10 MG CAP PO PRN (14:13)
[2022-02-22 17:12] LABS: Actual Bicarbonate (HCO3v) 32 mEq/L (22-28); Base Excess 3.8 mEq/L (-2.0 to +3.0); Calcium, Ionized (venous) 0.97 mmol/L (1.16-1.32); Chloride (VBG) 95 mmol/L (98-106); Hemoglobin (Hb) 11.3 g/dL (13.2-17.3); Potassium (VBG) 3.94 mmol/L (3.70-5.30); Puncture Site Other Site; RapidComm Collect By CBN; Sodium 135.2 mmol/L (133-146); pH (venous) 7.31 (7.32-7.43)
[2022-02-22] MEDS: rOPINIRole HCl 0.25 MG TAB PO SCH (19:58)
[2022-02-23 06:20] LABS: Hemoglobin 10.3 g/dL (13.5-17.5); Mean Corpuscular HGB CONC 31.9 g/dL (32.0-36.0); Mean Corpuscular Volume 81.6 fl (81.2-95.1); Mean Platelet Volume 9.3 fl (7.4-10.4); Platelet Count 214 10x3/uL (150-450); RBC Distribution Width 15.2 % (11.5-14.5); Red Blood Cell (RBC) Count 3.96 10x6/uL (4.32-5.72)
[2022-02-23 06:24] LABS: Actual Bicarbonate (HCO3v) 38 mEq/L (22-28); Base Excess 11.5 mEq/L (-2.0 to +3.0); Calcium, Ionized (venous) 0.92 mmol/L (1.16-1.32); Chloride (VBG) 93 mmol/L (98-106); Hemoglobin (Hb) 11.5 g/dL (13.2-17.3); Potassium (VBG) 3.61 mmol/L (3.70-5.30); Puncture Site Other Site; Sodium 134.6 mmol/L (133-146); pH (venous) 7.42 (7.32-7.43)
[2022-02-23 06:34] LABS: BUN (Urea Nitrogen) 8 mg/dL (8.9-20.6); Calc. Creatinine Clearance 209 mL/min (70-130); Calcium 7.5 mg/dL (7.8-10.44); Estimated GFR 89; Glucose 126 mg/dL (70-105)
[2022-02-23 06:44] LABS: MDiff Complete? YES
[2022-02-23 06:51] LABS: Anion Gap 16 mmol/L (10-20); Carbon Dioxide 32 mmol/L (22-29); Chloride 95 mmol/L (98-107); Potassium 3.7 mmol/L (3.5-5.1); Sodium 139 mmol/L (136-145)
[2022-02-23 06:55] LABS: Band 5 % (5-11); Eosinophils 5 % (0-10); Lymphocytes 8 % (21-51); Monocytes 11 % (0-10); Neutrophil 68 % (42-75); Reactive Lymphocytes 2 % (0-10)
[2022-02-23 06:56] LABS: Platelet Morphology Comment Appears Adequate; RBC Morphology Normal
[2022-02-23] MEDS: Bumetanide 1 MG TAB PO SCH (08:16)
[2022-02-23] MEDS: Gabapentin 300 MG CAP PO SCH (08:17)
[2022-02-23] MEDS: Spironolactone 25 MG TAB PO SCH (08:17)
[2022-02-23] MEDS: Folic Acid 1 MG TAB PO SCH (08:18)
[2022-02-23] MEDS: Thiamine 100 MG TAB PO SCH (08:19)
[2022-02-23] MEDS: Multivit, Therapeutic 1 TAB PO SCH (08:19)
[2022-02-23] MEDS: Aripiprazole 10 MG TAB PO SCH (08:28)
[2022-02-23] MEDS: Rifaximin 550 MG TAB PO SCH (08:28)
[2022-02-23] MEDS ORDERED: Pantoprazole 40 MG VIAL IVP SCH (09:00)
[2022-02-23 12:52] VITALS: BP 128/84; TEMP 98.3
== END 2022-02-23 14:50 | disposition home or self-care (01) | DRG 377 ==
LOC: CSHTELE 22:40 → CSHIMCU 02-22 12:38
PROVIDERS: ADMIT Student in an Organized Health Care Education/Training Program; ATTEND Family Medicine
PROC: 0DJ08ZZ Inspection of Upper Intestinal Tract, Via Natural or Artificial Opening Endoscopic (ICD-10-PCS; principal; 2022-02-21)
PROC: 5A09357 Assistance with Respiratory Ventilation, Less than 24 Consecutive Hours, Continuous Positive Airway Pressure (ICD-10-PCS; 2022-02-22)
DX: K92.0 Hematemesis (principal); G93.41 Metabolic encephalopathy; K70.31 Alcoholic cirrhosis of liver with ascites; E66.01 Morbid (severe) obesity due to excess calories; G25.81 Restless legs syndrome; G47.00 Insomnia, unspecified; F31.9 Bipolar disorder, unspecified; B19.20 Unspecified viral hepatitis C without hepatic coma; D64.9 Anemia, unspecified; Z98.890 Other specified postprocedural states; Z88.6 Allergy status to analgesic agent; Z90.49 Acquired absence of other specified parts of digestive tract; Z88.8 Allergy status to other drugs, medicaments and biological substances; Z79.899 Other long term (current) drug therapy
CPT/HCPCS: 36415; 71045; 76705; 80048; 80053; 82805; 85025; 94660; 94760; C9113; J0696; J1940; J2270; J2272; J2354; J2405; J2704; J3490; J7042; J7050; P9047

== ENCOUNTER → 2022-05-17 | Emergency (ER) | payer OTHER ==
[~2022-05-17] MED LIST changes: -Ketorolac Tromethamine 30 MG/ML VIAL ONE; +hydrOXYzine Pamoate 25 mg Capsule ONE
[2022-05-17 04:54] LABS: #Basophils 0.1 10x3/uL (0.0-0.2); #Eosinphils 0.3 10x3/uL (0.0-0.5); #Monocytes 0.9 10x3/uL (0.0-1.1); #Neutrophils 2.9 10x3/uL (1.5-8.4); %Eosinophils 6.1 % (0.0-6.0); %Lymphocytes 12.5 % (18.0-47.0); %Monocytes 18.9 % (0.0-10.0); %Neutrophils 59.9 % (40.0-75.0); Hemoglobin 10.2 g/dL (13.5-17.5); Mean Corpuscular HGB CONC 31.6 g/dL (32.0-36.0); Mean Corpuscular Hemoglobin 25.4 pg (27.0-33.0); Mean Corpuscular Volume 80.3 fl (81.2-95.1); Mean Platelet Volume 9.4 fl (7.4-10.4); Platelet Count 259 10x3/uL (150-450); RBC Distribution Width 17.1 % (11.5-14.5); Red Blood Cell (RBC) Count 4.02 10x6/uL (4.32-5.72); White Blood Cell (WBC) Count 4.9 10x3/uL (3.5-10.5)
[2022-05-17 05:04] LABS: ALT (SGPT) 34 U/L (8-55); AST (SGOT) 63 U/L (5-34); Albumin 3.2 g/dL (3.5-5.0); Alkaline Phosphatase 93 U/L (40-110); Anion Gap 15 mmol/L (10-20); BUN (Urea Nitrogen) 15 mg/dL (8.9-20.6); Bilirubin, Total 0.2 mg/dL (0.2-1.2); Calc. Creatinine Clearance 0 mL/min (70-130); Calcium 8.1 mg/dL (7.8-10.44); Carbon Dioxide 17 mmol/L (22-29); Chloride 112 mmol/L (98-107); Estimated GFR 76; Globulin 2.8 g/dL (2.4-3.5); Glucose 103 mg/dL (70-105); Magnesium 1.8 mg/dL (1.6-2.6); Potassium 4.3 mmol/L (3.5-5.1); Sodium 140 mmol/L (136-145)
[2022-05-17 05:56] LABS: Anisocytosis SLIGHT = 6-15 cells (100X) (0-5/hpf); Hypochromia SLIGHT = 6-15 cells (100X) (0-5/hpf); Microcytosis SLIGHT = 6-15 cells (100X) (0-5/hpf); Platelet Morphology Comment Appears Adequate
== END ==
LOC: CSHERS 04:04
DX: Z53.29 Procedure and treatment not carried out because of patient's decision for other reasons (principal)
CPT/HCPCS: 36415; 71045; 80053; 83735; 85025; 93005; Q0177

== ENCOUNTER 2022-12-22 03:47 | Emergency (ER) | payer MEDICARE, OTHER ==
[2022-12-22 04:27] LABS: ALT (SGPT) 20 U/L (8-55); AST (SGOT) 35 U/L (5-34); Albumin 2.9 g/dL (3.5-5.0); Alkaline Phosphatase 81 U/L (40-110); Anion Gap 12 mmol/L (10-20); Bilirubin, Total 0.3 mg/dL (0.2-1.2); Calc. Creatinine Clearance 0 mL/min (70-130); Calcium 8.4 mg/dL (7.8-10.44); Carbon Dioxide 26 mmol/L (22-29); Chloride 106 mmol/L (98-107); Estimated GFR 77; Globulin 3.1 g/dL (2.4-3.5); Glucose 136 mg/dL (70-105); Potassium 3.9 mmol/L (3.5-5.1); Sodium 140 mmol/L (136-145)
[2022-12-22 04:29] LABS: Base Excess 2.9 mEq/L (-2 - +2); Calcium, Ionized (venous) 1.01 mmol/L (1.16-1.32); Chloride (VBG) 106 mmol/L (98-106); Hematocrit-VBG 36 % (42.0-52.0); Hemoglobin (Hb) 12.2 g/dL (13.1-17.2); Potassium (VBG) 3.77 mmol/L (3.70-5.30); Puncture Site Other Site; RapidComm Collect By CBN; Sodium 141 mmol/L (133-146); pH (venous) 7.452 (7.32-7.43)
[2022-12-22 04:30] LABS: Troponin I Less than 0.010 ng/mL (< 0.028)
[2022-12-22] MEDS ORDERED: Ipratropium/Albuterol 3 ML NEB ONE (04:31)
[2022-12-22 04:33] LABS: #Basophils 0.1 10x3/uL (0.0-0.2); #Eosinphils 0.3 10x3/uL (0.0-0.5); #Monocytes 0.7 10x3/uL (0.0-1.1); #Neutrophils 3.5 10x3/uL (1.5-8.4); %Basophils 1.2 % (0.0-2.0); %Eosinophils 6.4 % (0.0-6.0); %Lymphocytes 10.1 % (18.0-47.0); %Monocytes 14.2 % (0.0-10.0); %Neutrophils 67.7 % (40.0-75.0); Hematocrit 37.1 % (38.8-50.0); Hemoglobin 12.3 g/dL (13.5-17.5); Mean Corpuscular HGB CONC 33.2 g/dL (32.0-36.0); Mean Corpuscular Hemoglobin 27.8 pg (27.0-33.0); Mean Corpuscular Volume 83.7 fl (81.2-95.1); Mean Platelet Volume 9.5 fl (7.4-10.4); Platelet Count 170 10x3/uL (150-450); RBC Distribution Width 16.2 % (11.5-14.5); Red Blood Cell (RBC) Count 4.43 10x6/uL (4.32-5.72); White Blood Cell (WBC) Count 5.1 10x3/uL (3.5-10.5)
[2022-12-22 04:51] LABS: PTT 22.8 sec (22.0-33.0); Prothrombin Time 11.1 sec (9.5-12.1)
[2022-12-22] MEDS ORDERED: Morphine 4 MG/ML VIAL ONE (05:34)
[2022-12-22] MEDS ORDERED: Ondansetron PF 4 MG/2 ML Vial ONE (05:34)
[2022-12-22 06:14] LABS: BUN (Urea Nitrogen) 15 mg/dL (8.9-20.6)
[2022-12-22] MEDS ORDERED: Furosemide 100 MG/10 ML VIAL ONE (06:30)
[2022-12-22] MEDS ORDERED: Albumin 25% 25 GM/100 ML BOT IVPB SCH (07:15)
[2022-12-22] MEDS ORDERED: Sodium Bicarbonate 2.5 MEQ/5 ML VIAL ONE (08:52)
[2022-12-22] MEDS ORDERED: Lidocaine 1% PF 5 ML VIAL ONE (08:52)
[2022-12-22] MEDS ORDERED: Iopamidol 370 76% 100 ML VIAL ONE (12:19)
== END 2022-12-22 10:18 | disposition home or self-care (01) ==
LOC: CSHERS 03:47
DX: R06.00 Dyspnea, unspecified (principal); R18.8 Other ascites; E87.70 Fluid overload, unspecified
CPT/HCPCS: 49083; 71045; 71275; 80053; 82805; 83605; 83690; 83880; 84484; 85025; 85610; 85730; 93005; 94640; 94760; P9047; 96374; 96375; J1940; J2270; J2405; J7620; Q9967

== ENCOUNTER 2022-12-29 07:59 | Emergency (ER) | payer MEDICARE, OTHER | END 2022-12-29 08:30 | disposition home or self-care (01) | LOC: CSHERS 07:59 | DX: K70.31 Alcoholic cirrhosis of liver with ascites (principal); B19.20 Unspecified viral hepatitis C without hepatic coma; R06.02 Shortness of breath | CPT/HCPCS: 93005 ==

== ENCOUNTER 2023-01-21 03:30 | Emergency (ER) | payer OTHER ==
[2023-01-21] MEDS ORDERED: Lidocaine 1% (PF) 30 ML VIAL ONE (04:07)
[2023-01-21 04:08] LABS: #Basophils 0.1 10x3/uL (0.0-0.2); #Eosinphils 0.3 10x3/uL (0.0-0.5); #Monocytes 0.9 10x3/uL (0.0-1.1); #Neutrophils 3.1 10x3/uL (1.5-8.4); %Basophils 1.6 % (0.0-2.0); %Lymphocytes 11.3 % (18.0-47.0); %Monocytes 18.1 % (0.0-10.0); %Neutrophils 61.8 % (40.0-75.0); Hematocrit 37.7 % (38.8-50.0); Hemoglobin 12.6 g/dL (13.5-17.5); Mean Corpuscular HGB CONC 33.4 g/dL (32.0-36.0); Mean Corpuscular Hemoglobin 27.8 pg (27.0-33.0); Mean Corpuscular Volume 83.2 fl (81.2-95.1); Mean Platelet Volume 9.8 fl (7.4-10.4); Platelet Count 210 10x3/uL (150-450); RBC Distribution Width 16.6 % (11.5-14.5); Red Blood Cell (RBC) Count 4.53 10x6/uL (4.32-5.72)
[2023-01-21 04:12] LABS: PTT 25.1 sec (22.0-33.0); Prothrombin Time 11.2 sec (9.5-12.1)
[2023-01-21 04:23] LABS: ALT (SGPT) 16 U/L (8-55); AST (SGOT) 33 U/L (5-34); Albumin 3.4 g/dL (3.5-5.0); Alkaline Phosphatase 68 U/L (40-110); Anion Gap 16 mmol/L (10-20); BUN (Urea Nitrogen) 21 mg/dL (8.9-20.6); Bilirubin, Total 0.3 mg/dL (0.2-1.2); Calc. Creatinine Clearance 0 mL/min (70-130); Calcium 8.6 mg/dL (7.8-10.44); Carbon Dioxide 22 mmol/L (22-29); Chloride 104 mmol/L (98-107); Estimated GFR 50; Globulin 3.7 g/dL (2.4-3.5); Glucose 151 mg/dL (70-105); Lipase 44 U/L (8-78); Protein, Total 7.1 g/dL (6.0-8.3); Sodium 138 mmol/L (136-145)
[2023-01-21] MEDS ORDERED: Albumin 25% 25 GM/100 ML BOT IVPB SCH (04:45)
[2023-01-21 04:56] LABS: Bilirubin Neg (Negative); Blood, Urine Negative (Negative); Clarity Clear (Clear); Glucose, Urine (Dipstick) Normal (Negative); Ketone, Urine Negative (Negative); Leukocyte Negative (Negative); Nitrite Negative (Negative); Protein, Urine (Dipstick) Negative (Neg-Trace); Urobilinogen Normal mg/dL (Less than 2)
[2023-01-21 05:39] LABS: Bacteria/HPF None Seen HPF (None Seen); CAUTI Indications for Culture Pelvic or flank pain; RBC/HPF None Seen HPF (0-3); Squamous Epithelial None Seen HPF (0-3); WBC/HPF None Seen HPF (0-3)
[2023-01-21 05:40] LABS: Urine Culture Reflex No No
== END 2023-01-21 06:30 | disposition home or self-care (01) ==
LOC: CSHERS 03:30
DX: R18.8 Other ascites (principal); K21.9 Gastro-esophageal reflux disease without esophagitis; E03.9 Hypothyroidism, unspecified; Z79.890 Hormone replacement therapy; Z79.899 Other long term (current) drug therapy
CPT/HCPCS: 80053; 81001; 82140; 83605; 83690; 85025; 85610; 85730; 87040; 87070; 87205; P9047; 36415; 49083; J2001

== ENCOUNTER 2023-11-20 04:18 | Emergency (ER) | payer OTHER ==
[2023-11-20 05:14] LABS: #Basophils 0.06 10x3/uL (0.0-0.2); #Eosinophils 0.34 10x3/uL (0.0-0.5); #Monocytes 0.95 10x3/uL (0.0-1.1); #Neutrophils 2.96 10x3/uL (1.5-8.4); %Basophils 1.2 % (0.0-2.0); %Lymphocytes 11.3 % (18.0-47.0); %Monocytes 19.5 % (0.0-10.0); %Neutrophils 60.6 % (40.0-75.0); Hematocrit 35.1 % (38.8-50.0); Hemoglobin 11.5 g/dL (13.5-17.5); Mean Corpuscular HGB CONC 32.8 g/dL (32.0-36.0); Mean Corpuscular Hemoglobin 26.4 pg (27.0-33.0); Mean Corpuscular Volume 80.7 fL (81.2-95.1); Mean Platelet Volume 9.9 fL (7.4-10.4); Platelet Count 191 10x3/uL (150-450); RBC Distribution Width 15.4 % (11.5-14.5); Red Blood Cell (RBC) Count 4.35 10x6/uL (4.32-5.72); White Blood Cell (WBC) Count 4.9 10x3/uL (3.5-10.5)
[2023-11-20 05:24] LABS: Phosphorus 3.2 mg/dL (2.3-4.7)
[2023-11-20 05:26] LABS: ALT (SGPT) 16 U/L (8-55); AST (SGOT) 28 U/L (5-34); Alkaline Phosphatase 59 U/L (40-110); Anion Gap 14 mmol/L (10-20); BUN (Urea Nitrogen) 20 mg/dL (8.9-20.6); Bilirubin, Total 0.5 mg/dL (0.2-1.2); Calc. Creatinine Clearance 0 mL/min (70-130); Calcium 9.1 mg/dL (7.8-10.44); Carbon Dioxide 24 mmol/L (22-29); Chloride 102 mmol/L (98-107); Estimated GFR 78; Glucose 111 mg/dL (70-105); Magnesium 1.8 mg/dL (1.6-2.6); Potassium 3.5 mmol/L (3.5-5.1); Sodium 136 mmol/L (136-145)
== END 2023-11-20 06:14 | disposition home or self-care (01) ==
LOC: CSHERS 04:18
DX: R20.2 Paresthesia of skin (principal); R25.2 Cramp and spasm; K21.9 Gastro-esophageal reflux disease without esophagitis; F17.290 Nicotine dependence, other tobacco product, uncomplicated; Z79.899 Other long term (current) drug therapy
CPT/HCPCS: 36415; 80053; 83735; 84100; 84443; 85025; 99284

== ENCOUNTER 2025-02-01 10:37 | Emergency (ER) | payer OTHER | END 2025-02-01 11:54 | LOC: CSHERS 10:37 | DX: M79.10 Myalgia, unspecified site (principal); Y04.8XXA Assault by other bodily force, initial encounter | CPT/HCPCS: 99284 ==